=== PATIENT | male | born 1985 | race American Indian/Alaskan Native ===

== ENCOUNTER 2019-07-06 03:49 | Emergency (ER) | payer SELFPAY ==
[~2019-07-06] VITALS: Ht 172.7 cm; Wt 55.0 kg
[2019-07-06] MEDS ORDERED: IBUPROFEN 600MG TABLET PO ONE (07:15)
[2019-07-06 08:35] VITALS: BP 123/67
== END 2019-07-06 08:43 | disposition home or self-care (01) ==
LOC: ER 03:49
DX: S62.395A Other fracture of fourth metacarpal bone, left hand, initial encounter for closed fracture (principal); Y08.89XA Assault by other specified means, initial encounter; Y93.89 Activity, other specified; Y92.89 Other specified places as the place of occurrence of the external cause
CPT/HCPCS: 29125; 73060; 73110; 73130; 99283